=== PATIENT | female | born 2000 | race African-American/Black ===

== ENCOUNTER 2019-10-23 17:18 | Emergency (ER) | payer OTHER ==
[~2019-10-23] VITALS: Ht 162.6 cm; Wt 5.4 kg
== END 2019-10-23 18:50 | disposition home or self-care (01) ==
LOC: ED 17:18
DX: T18.2XXA Foreign body in stomach, initial encounter (principal); J45.909 Unspecified asthma, uncomplicated; Z87.891 Personal history of nicotine dependence; Z88.0 Allergy status to penicillin; Z88.8 Allergy status to other drugs, medicaments and biological substances
CPT/HCPCS: 71045; 74018; 99283-25